=== PATIENT | male | born 1960 | race Caucasian/White ===

== ENCOUNTER 2016-11-05 12:58 | Observation (INO) | payer OTHER ==
[2016-11-05] MEDS ORDERED: NO HOME MEDICATION XX (13:04)
[2016-11-05 15:39] LABS: ALB/GLOB RATIO 1.3 (0.8-2.0); ALBUMIN 4.3 g/dl (3.5-5.0); ALKALINE PHOSPHATASE 89 U/L (33-138); ALT/SGPT 61 U/L (12-78); ANION GAP 10 mmol/L (0-20); AST/SGOT 24 U/L (10-40); BILIRUBIN,TOTAL 0.4 mg/dl (0.0-1.5); BLOOD UREA NITROGEN 18 mg/dl (6-24); CALCIUM 9.2 mg/dl (8.5-10.5); CARBON DIOXIDE-VENOUS 27 mmol/L (22-32); CHLORIDE 107 mmol/l (96-110); CREATININE 1.09 mg/dl (0.60-1.30); GLUCOSE 106 mg/dL (70-110); POTASSIUM 4.4 mmol/L (3.7-5.1); SODIUM 140 mmol/L (135-145); eGFR VALUE FOR BLACK 89 mL/Min
[2016-11-06 09:29] LABS: HGB-HEMOGLOBIN 16.5 gm/dl (13.5-17.0); PLATELET COUNT 273 tho/cmm (150-450)
[2016-11-06] MEDS ORDERED: BACITRACIN28.4 G2 TOP (10:11)
[2016-11-06] MEDS ORDERED: HYDROCODON-ACE1 EA16 PO (10:13)
== END 2016-11-06 13:50 ==
LOC: EDMED 12:58 → EMR2 13:43 → BURN 14:03
PROVIDERS: Emergency Medicine; Surgery; ADMIT Surgery
PROC: 0HR1XK3 Replacement of Face Skin with Nonautologous Tissue Substitute, Full Thickness, External Approach (ICD-10-PCS; principal; 2016-11-06)
DX: T20.46XA Corrosion of unspecified degree of forehead and cheek, initial encounter (principal); T20.44XA Corrosion of unspecified degree of nose (septum), initial encounter; T59.891A Toxic effect of other specified gases, fumes and vapors, accidental (unintentional), initial encounter; Y93.89 Activity, other specified; Y92.69 Other specified industrial and construction area as the place of occurrence of the external cause; Y99.0 Civilian activity done for income or pay
CPT/HCPCS: G0378; J1650; Q4154